=== PATIENT | male | born 1955 ===

== ENCOUNTER 2017-12-26 09:54 | Day surgery (SDC) | payer OTHER ==
[2017-12-26] MEDS ORDERED: LR 1,000 ML IV ONE (10:16)
--- NOTE | 2017-12-26 11:30 | PDANEPAE ---
ANE History of Present Illness @nd attempt, unable to complete prior procedure ANE Past Medical History - Cardiovascular History Hx Hypertension: No Hx Arrhythmias: No Hx Chest Pain: No Hx Coronary Artery / Peripheral Vascular Disease: No Hx CHF / Valvular Disease: No Hx Palpitations: No - Pulmonary History Hx COPD: No Hx Asthma/Reactive Airway Disease: No Hx Recent Upper Respiratory Infection: No Hx Oxygen in Use at Home: No Hx Sleep Apnea: No Sleep Apnea Screening Result - Last Documented: Negative - Neurologic History Hx Cerebrovascular Accident: No Hx Seizures: No Hx Dementia: No - Endocrine History Hx Diabetes: No - Renal History Hx Renal Disorders: No - Liver History Hx Hepatic Disorders: No - Neurological & Psychiatric Hx Hx Neurological and Psychiatric Disorders: No - Cancer History Hx Cancer: No - Congenital Disorder History Hx Congenital Disorders: No - GI History Hx Gastrointestinal Disorders: Yes Gastrointestinal History Comment: unable to complete colonoscopy in office a couple weeks ago- this is second attempt. new diagnosis of diverticuli. hx of previous colonoscopies - Other Health History Other Health History: wears glasses. uses cream on scalp to increase hair growth - Chronic Pain History Chronic Pain: No - Surgical History Prior Surgeries: previous colonoscopies. wisdom teeth at 20 yo ANE Review of Systems Review of Systems: - Exercise capacity METS (RN): 6 METS ANE Patient History - Allergies Allergies/Adverse Reactions: No Known Allergies Allergy (Verified 12/25/17 12:40) - Home Medications Home Medications: Aspirin 81mg (*) 12/25/17 [Last Taken 12/23/17] Minoxidil 12/25/17 [Last Taken 12/26/17] - NPO status NPO Since - Liquids (Date): 12/26/17 NPO Since - Liquids (Time): 00:01 NPO Since - Solids (Date): 12/25/17 NPO Since - Solids (Time): 08:30 - Anes Hx Anes Hx: no prior problems - Smoking Hx Smoking Status: Never smoked - Family Anes Hx Family Hx Anesthesia Complications: none ANE Labs/Vital Signs - Vital Signs Blood Pressure: 130/86 Heart Rate: 59 Respiratory Rate: 16 O2 Sat (%): 91 Height: 175.26 cm Weight: 83.915 kg ANE Physical Exam - Airway Neck exam: FROM Mallampati Score: Class 2 Mouth exam: normal dental/mouth exam - Pulmonary Pulmonary: no respiratory distress - Cardiovascular Cardiovascular: regular rate and rhythym - ASA Status ASA Status: II ANE Anesthesia Plan Anesthesia Plan: MAC
--- NOTE | 2017-12-26 11:32 | PDGENHP ---
History & Physical Chief Complaint: fhx cc History of Present Illness: strong fhx cc. phx TA polyp Pertinent Past, Social, Family History: stroing fhx cc. phx polyps. no tobacco , social alcohol Relevant Physical Exam: A+Ox3. CTA. S1S2. +BS,soft nt Cardiorespiratory Assessment: class 2
[2017-12-26] MEDS ORDERED: PROPOFOL 200 MG/20 ML VIAL ONE ×3 (11:34→11:56)
[2017-12-26] MEDS ORDERED: NALOXONE HCL 0.4 MG/ML INJ IVP PRN (11:52)
--- NOTE | 2017-12-26 12:14 | GIREPORT ---
[facility] - Endoscopy Department Patient Name: Jarett Bradshaw Procedure Date: 12/26/2017 11:06 AM Patient Type: Outpatient Attending MD/ ER Physician: Geovanna Betts Procedure: Colonoscopy Indications: Surveillance: Personal history of adenomatous polyps on last colonoscop y 3 years ago, Family history of colon cancer in a first-degree relative, F amily history of colon cancer in multiple second-degree relatives Providers: Liu Whatley MD Referring MD: Alli Navarro Medicines: Total IV Anesthesia (TIVA) = IV general Complications: No immediate complications. Estimated blood loss: Minimal. Description of Procedure: After obtaining informed consent, the scope was passed under direct vis ion. Throughout the procedure, the patient's blood pressure, pulse, and oxyg en saturations were monitored continuously. The Colonoscope was introduced through the anus and advanced to the terminal ileum, with identificatio n of the appendiceal orifice and IC valve. The colonoscopy was technically difficult and complex due to multiple diverticula in the colon, restric delroy mobility of the colon and significant looping. Successful completion of the procedure was aided by straightening and shortening the scope to obtain bowel loop reduction and using scope torsion. The patient tolerated the procedure well. The quality of the bowel preparation was good. Findings: The digital rectal exam was normal. The terminal ileum appeared normal. A 6 mm polyp was found in the mid transverse colon. The polyp was semi-sessile. The polyp was removed with a cold snare. Resection was complete, but the polyp tissue was not retrieved. Estimated blood loss was minimal. Two sessile polyps were found in the distal transverse colon. The polyp s were 2 to 3 mm in size. These polyps were removed with a piecemeal tech nique using a cold biopsy forceps. Resection and retrieval were complete. Estimated blood loss was minimal. A 7 mm polyp was found in the distal transverse colon. The polyp was semi-sessile. The polyp was removed with a cold snare. Resection and retrieval were complete. Estimated blood loss was minimal. Multiple small and large-mouthed diverticula were found in the sigmoid colon and descending colon. The exam was otherwise without abnormality. Estimated Blood Loss: Estimated blood loss was minimal. Post Op Diagnosis: - The examined portion of the ileum was normal. - One 6 mm polyp in the mid transverse colon, removed with a cold snare . Complete resection. Polyp tissue not retrieved. - Two 2 to 3 mm polyps in the distal transverse colon, removed piecemea l using a cold biopsy forceps. Resected and retrieved. - One 7 mm polyp in the distal transverse colon, removed with a cold sn are. Resected and retrieved. - Diverticulosis in the sigmoid colon and in the descending colon. - The examination was otherwise normal. Recommendation: - Await pathology results. - My office will call with the pathology result with 5-7 days. If you h ave not heard from my office by 12-14, do not assume the pathology is [place], please call [phone] to get the pathology results. - Repeat colonoscopy in 2 years for surveillance. - Refer to Dr. [facility] given significant FHx. If genetic syndrome is negative or felt to be unlikely, then increase interval to 3 years. - High fiber diet indefinitely. - 30-35 grams of dietary fiber per day. Can use supplemental fiber. - A high fiber diet may decrease risk of complications from diverticulo sis. There is no need to avoid seeds or nuts. - Patient has a contact number available for emergencies. The signs and symptoms of potential delayed complications were discussed with the pat ient. Return to normal activities tomorrow. Written discharge instructions we re provided to the patient. - Continue present medications. - Discharge patient to home (ambulatory). - Return to primary care physician as previously scheduled. - Thank you for allowing me to help in your patient's care. Do not hesi cota to call with any questions. Attending Participation: I personally performed the entire procedure. Phylicia Hatfield M.D Liu Whatley MD 12/26/2017 12:14:03 PM This report has been signed electronicallyMathew MD Phylicia Number of Addenda: 0 Note Initiated On: 12/26/2017 11:06 AM Total Procedure Duration Time 0 hours 24 minutes 25 seconds [email or web address]
--- NOTE | 2017-12-26 12:18 | POSTANESTH ---
Post Anesthetic Evaluation Cardiovascular Status: Similar to Pre-Op Cond Respiratory Status: Similar to Pre-op Cond. Level of Consciousness/Mental Status: Alert and Oriented Pain Control: Adequate, Prn Tx Ordered Nausea/Vomiting Control: Adequate, Prn Tx Ordered Complications Possibly Related to Anesthesia: None Noted
[2017-12-26 13:35] VITALS: BP 124/84
== END 2017-12-26 13:41 | disposition home or self-care (01) ==
LOC: FSGY 09:54
PROVIDERS: ATTEND Internal Medicine Gastroenterology
DX: Z12.11 Encounter for screening for malignant neoplasm of colon (principal); K63.5 Polyp of colon; D12.3 Benign neoplasm of transverse colon; K57.32 Diverticulitis of large intestine without perforation or abscess without bleeding; Z86.010 Personal history of colon polyps; Z80.0 Family history of malignant neoplasm of digestive organs
CPT/HCPCS: J2704